=== PATIENT | male | born 1975 | race Caucasian/White ===

== ENCOUNTER 2017-01-02 00:13 | Day surgery (SDC) | payer OTHER ==
[~2017-01-02 00:13] MED LIST: KETO120S3 TP; LEVO200T6 PO; LEVO25TA2 PO; METF500T4 PO
[2017-01-02] MEDS ORDERED: Thyrotropin 0.9 mg/mL Inj IM ONE (10:00)
[2017-01-02 14:15] VITALS: BP 142/85; PULSE 89; RESP 12; O2SAT 95
[2017-01-02] MEDS ORDERED: ASPI-973 PO (14:20)
--- NOTE | 2017-01-02 14:39 | NUR ---
Thyrogen injection Received from admitting about 1410. VSS. Denies pain. Allergies and pt. identifiers verified. Med. rec. done. Thyrogen injection care note reviewed. Injection given in left buttock about 1435 and pt. left ambulatory with all belongings in no distress.
== END 2017-01-02 23:59 | disposition home or self-care (01) ==
LOC: SOUO 00:13
PROVIDERS: ATTEND Specialist
DX: C73 Malignant neoplasm of thyroid gland (principal)
CPT/HCPCS: 96372; J3240

== ENCOUNTER 2017-01-03 00:47 | Day surgery (SDC) | payer OTHER ==
[~2017-01-03 00:47] MED LIST changes: +ASPI-973 PO; +Thyrotropin 0.9 mg/mL Inj IM SCH
[2017-01-03] MEDS ORDERED: Thyrotropin 0.9 mg/mL Inj IM ONE (10:00)
== END 2017-01-03 23:59 | disposition home or self-care (01) ==
LOC: SOUO 00:47
PROVIDERS: ATTEND Specialist
DX: C73 Malignant neoplasm of thyroid gland (principal)
CPT/HCPCS: 96372; J3240